=== PATIENT | female | born 1960 | race Caucasian/White ===

== ENCOUNTER 2019-05-21 08:55 | Outpatient (CLI) | payer BC, OTHER, SELFPAY ==
[2019-05-21 10:13] LABS: Alanine Aminotransferase 17 U/L (4-35); Aspartate Amino Transferase 34 U/L (14-36)
== END 2019-05-21 08:56 | disposition home or self-care (01) ==
PROVIDERS: Visit Provider Podiatrist Foot & Ankle Surgery
DX: B35.1 Tinea unguium (principal)
CPT/HCPCS: 36415; 84450; 84460

== ENCOUNTER → 2019-06-23 07:46 | Outpatient (CLI) | payer BC, OTHER, SELFPAY ==
--- NOTE | ~2019-06-23 | DEXA_ITS ---
Bone Density Report Name: Mary Amador Age: 59 Sex: Female Ethnicity: White Date of : 1960 Indication: osteopenia; parental hip fracture; height loss; inflammatory bowel disease; postmenopausal Referring Provider: KINGS ESCOBAR Study: Bone densitometry was performed. Exam Date: June 23, 2019 Accession number: [id number] Bone Density: Region BMD T-score Z-score Classification AP Spine (L1-L4) 0.822 -2.0 -0.7 Osteopenia Femoral Neck (Left) 0.593 -2.3 -1.1 Osteopenia Total Hip (Left) 0.694 -2.0 -1.1 Osteopenia Femoral Neck (Right) 0.556 -2.6 -1.4 Osteoporosis Total Hip (Right) 0.676 -2.2 -1.3 Osteopenia Total Hip Mean 0.685 -2.1 -1.2 Osteopenia World Health Organization criteria for BMD impression classify patients as: Normal (T-score at or above -1.0), Osteopenia (T-score between -1.0 and -2.5), or Osteoporosis (T-score at or below -2.5). 10-year Fracture Risk: FRAX not reported because: Some T-score for Spine Total or Hip Total or Femoral Neck at or below -2.5 Previous Exams: Region Exam Age BMD T-score BMD Change BMD Change Date g/cm2 vs Baseline vs Previous AP Spine(L1-L4) 06/23/2019 59 0.822 -2.0 -0.021 -0.021 03/08/2014 53 0.844 -1.8 Total Hip(Left) 06/23/2019 59 0.694 -2.0 -0.063* -0.063* 03/08/2014 53 0.757 -1.5 Total Hip(Right) 06/23/2019 59 0.676 -2.2 -0.034* -0.034* 03/08/2014 53 0.710 -1.9 *Denotes significance at 95% confidence level, LSC for AP Spine = 0.022 g/cm2, LSC for Total Hip = 0.027 g/cm2 Clinical Information Provided by Patient: Parent has had a hip fracture Has used the following medications: Reclast (i.e. zoledronate), Vitamin D, Calcium Has the following medical conditions: Inflammatory bowel diseases Patient maximum height was 63 Menopause Age: 50 No regular weight bearing exercise Drinks caffeinated beverages Onset of menses at age 13 Number of children 6 Impression: The patient has osteoporosis, based on the Right Femoral Neck T-score. The patient has risk factors, including: parental hip fracture. The BMD for the Total Hip(Left) decreased, changing by -0.063 since the last DXA exam. The BMD for the Total Hip(Right) decreased, changing by -0.034 since the last DXA exam. Discussion: INCREASED RISK OF FRACTURE. BONE DENSITY IS UNDESIRABLY LOW AT ONE OR MORE SKELETAL SITES, CONSISTENT WITH POSTMENOPAUSAL OSTEOPOROSIS. This patient's lowest T
--- NOTE | ~2019-06-23 | MM_ITS ---
EXAMINATION: MM screening [facility] BI w maral HISTORY: Screening mammogram TECHNIQUE: Craniocaudal and mediolateral oblique 3-D tomosynthesis images were obtained and synthetic 2-D images were generated. CAD analysis was submitted and interpreted. COMPARISON: 07/19/2015, 02/22/2014 BREAST PARENCHYMAL COMPOSITION: The breasts are heterogeneously dense, which may obscure small masses . FINDINGS: A stable low-density mass in the right breast is considered benign given the lack of interv al change. There is no evidence of suspicious mass, calcification, or architectural distortion to sug gest malignancy in either breast. There has been no suspicious interval change. IMPRESSION: 1. No mammographic evidence of malignancy. 2. Recommend routine screening mammography in one year. BI-RADS Category 2: Benign finding(s). Reviewed, dictated and finalized at location A.
== END ==
PROVIDERS: Visit Provider Obstetrics & Gynecology
DX: Z78.0 Asymptomatic menopausal state (principal); Z12.31 Encounter for screening mammogram for malignant neoplasm of breast; M85.89 Other specified disorders of bone density and structure, multiple sites; M81.0 Age-related osteoporosis without current pathological fracture
CPT/HCPCS: 77063; 77067; 77080